=== PATIENT | male | born 1935 | race Caucasian/White ===

== ENCOUNTER 2019-12-11 17:56 | Emergency (ER) | payer OTHER, MEDICARE ==
[~2019-12-11] VITALS: Ht 177.8 cm; Wt 86.2 kg
[2019-12-11] MEDS ORDERED: Robaxin-750750 MG PO (22:27)
== END 2019-12-11 22:39 | disposition home or self-care (01) ==
LOC: ER 17:56
DX: M54.5 Low back pain (principal); I10 Essential (primary) hypertension; V49.9XXA Car occupant (driver) (passenger) injured in unspecified traffic accident, initial encounter
CPT/HCPCS: 72100; 99284-25

== ENCOUNTER 2020-05-20 07:42 | Day surgery (SDC) | payer MEDICARE, OTHER ==
[~2020-05-20 07:42] MED LIST: Robaxin-750750 MG PO
--- NOTE | 2020-05-20 09:04 | NUR ---
PT A/O X4, VSS, DENIES DIZZINESS OR PAIN. PT DENIES QUESTIONS. AMBULATORY WITHOUT ASSISTANCE.
--- NOTE | 2020-05-23 13:09 | NUR ---
05/23/20 1309 Suzie Cleary RN WAS NOT AVAILABLE TO FINISH CHARTING PT TIME OUT OF DEPARTMENT, GOT TIME FROM NURSES NOTE IN CLINICAL REVIEW.
== END 2020-05-20 23:20 | disposition home or self-care (01) ==
LOC: CT 07:42 → ORD 07:42 → CT 09:00 → ORD 23:20
DX: R07.9 Chest pain, unspecified (principal); I10 Essential (primary) hypertension; I45.10 Unspecified right bundle-branch block; I35.0 Nonrheumatic aortic (valve) stenosis; G47.33 Obstructive sleep apnea (adult) (pediatric); E78.5 Hyperlipidemia, unspecified; Z79.82 Long term (current) use of aspirin; Z79.899 Other long term (current) drug therapy; M19.90 Unspecified osteoarthritis, unspecified site; I25.10 Atherosclerotic heart disease of native coronary artery without angina pectoris; K44.9 Diaphragmatic hernia without obstruction or gangrene
CPT/HCPCS: 75571

== ENCOUNTER 2020-07-28 05:34 | Day surgery (SDC) | payer MEDICARE, OTHER ==
[~2020-07-28] VITALS: Ht 177.8 cm; Wt 89.0 kg
[~2020-07-28 05:34] MED LIST changes: +ACET500 PO; +ALLO100 PO; +AMLO5 PO; +Aspirin EC81 MG PO; +CALCIUM MAGNES1 EAC1 PO; +FISH OIL 1,2001 EAC1 PO; +GABA100 PO; +GABA300 PO; +GINKGO60 MG PO; +Garlic1 EAC1 PO; +Isosorbide Mono30 MG PO; +LACT PO; +LOSA50 PO; +Lovastatin20 MG PO; +METO25ER PO; +MULTI-VITAMIN1 EAC2 PO; +NITR.4SL SL; +OMEP20ER PO; +RED YEAST RICE PO; +THERA-D2000 UNIT PO; +UBID10 PO
--- NOTE | 2020-07-28 08:32 | NUR ---
PT BACK FROM PROCEDURE. R RADIAL SITE STABLE WITH TR BAND IN PLACE. PT AT SIDE AND PT EATING BREAKFAST.
--- NOTE | 2020-07-28 10:06 | NUR ---
PT HAVING 5/10 CHEST PAIN, DR BONDS NOTIFIED EKG OBTAINED. PT CHEST PAIN 4/10 AT THIS TIME. 2MG MORPHINE ORDERED TO BE GIVEN, BUT PT REFUSING AT THIS TIME.
--- NOTE | 2020-07-28 10:13 | NUR ---
CP DOWN TO 08/31, WILL CONTINUE TO MONITOR.
--- NOTE | 2020-07-28 10:25 | NUR ---
PT UP TO BATHROOM, STATES CHEST PAIN GONE. STATES HE HAS TIGHTNESS AT ABOUT A 0.5/10 ON SCALE NOW. WILL CONTINUE TO MONITOR.
--- NOTE | 2020-07-28 10:39 | NUR ---
DR BONDS IN TO SEE PT. PT STATES PAIN IS GONE AND HE FEELS BETTER. OKAYED TO BE DISCHARGED HOME WITH FOLLOW UP IN CLINIC. R RADIAL SITE CLEANSED AND CLOTH DOT PLACED. ARM BOARD TO RIGHT ARM. DISCHARGE INSTRUCTIONS REVIEWED WITH PT AND , BOTH VERBALIZE UNDERSTANDING OF INSTRUCTIONS. PT GETTING DRESSED WITH ASSIST OF .
--- NOTE | 2020-07-28 10:57 | NUR ---
SALINE LOCK REMOVED WITH CATHETER INTACT. PT DISCHARGED PER W/C TO PRIVATE VEHICLE.
== END 2020-07-28 11:30 | disposition home or self-care (01) ==
LOC: MHTC 05:34
DX: I25.119 Atherosclerotic heart disease of native coronary artery with unspecified angina pectoris (principal); R93.1 Abnormal findings on diagnostic imaging of heart and coronary circulation; I10 Essential (primary) hypertension; E78.5 Hyperlipidemia, unspecified; I35.0 Nonrheumatic aortic (valve) stenosis; I45.10 Unspecified right bundle-branch block; R09.89 Other specified symptoms and signs involving the circulatory and respiratory systems; G47.33 Obstructive sleep apnea (adult) (pediatric); M19.90 Unspecified osteoarthritis, unspecified site; Z79.82 Long term (current) use of aspirin
CPT/HCPCS: 76937; 93005; 93010; 93454; 99152; 99153; C1769; C1894; J1644; J2250; J3010; J7030; J7050; Q9967

== ENCOUNTER 2021-04-07 14:12 | Emergency (ER) | payer MEDICARE, OTHER ==
[~2021-04-07] VITALS: Ht 177.8 cm; Wt 88.5 kg
[2021-04-07 14:58] LABS: BASOPHILS ABSOLUTE AUTO 0.02 K/mm3 (0.00-0.23); BASOPHILS PERCENT AUTO 0 % (0-2); EOSINOPHILS ABSOLUTE AUTO 0.18 K/mm3 (0.00-0.68); EOSINOPHILS PERCENT AUTO 3 % (0-6); Hematocrit 45.4 % (37.0-53.0); Hemoglobin 15.2 g/dL (13.5-17.5); IMMATURE GRAN ABSOLUTE AUTO 0.02 K/mm3 (0.00-0.10); IMMATURE GRAN PERCENT AUTO 0 % (0-1); LYMPHOCYTES ABSOLUTE AUTO 1.21 K/mm3 (0.84-5.20); LYMPHOCYTES PERCENT AUTO 18 % (21-46); MONOCYTES PERCENT AUTO 9 % (4-13); Mean Corpuscular HGB 31.1 pg (26.0-34.0); Mean Corpuscular HGB Conc 33.5 g/dL (31.5-36.5); Mean Corpuscular Volume 93 fL (80-100); Mean Platelet Volume 9.9 fL (9.1-12.4); NEUTROPHILS ABSOLUTE AUTO 4.62 K/mm3 (1.96-9.15); NEUTROPHILS PERCENT AUTO 70 % (41-73); Platelet Count 195 K/mm3 (150-400); RDW Coefficient Variation 12.7 % (11.7-14.2); RDW Standard Deviation 43.8 fL (35.1-46.3); Red Blood Cell Count 4.89 M/mm3 (4.30-5.90); White Blood Cell Count 6.65 K/mm3 (4.00-11.30)
[2021-04-07 15:30] LABS: Alanine Aminotransfer (ALT/SGP 32 U/L (12-78); Albumin, Blood 3.9 g/dL (3.4-5.0); Albumin/Globulin Ratio 1.1 (0.8-1.8); Alk Phos 69 U/L (50-136); Anion Gap 5 mmol/L (6-16); Aspartate Aminotrans (AST/SGOT 20 U/L (12-37); Bilirubin, Total 0.5 mg/dL (0.1-1.0); Blood Urea Nitrogen 14 mg/dL (8-24); Bun/Creatinine Ratio 12.7 (12.0-20.0); CO2, Blood 29 mmol/L (21-32); Calcium, Blood 9.3 mg/dL (8.5-10.1); Chloride, Blood 105 mmol/L (98-108); Globulin, Blood 3.6 g/dL (2.2-4.0); Glomerular Filtration Rate >60 (60-); Glucose, Blood 126 mg/dL (70-99); Sodium, Blood 139 mmol/L (136-145); Total Protein, Blood 7.5 g/dL (6.4-8.2); Troponin I <0.015 ng/mL (0.000-0.040)
[2021-04-07] MEDS ORDERED: FAMO40 PO (16:44)
== END 2021-04-07 17:34 | disposition home or self-care (01) ==
LOC: ER 14:12
PROVIDERS: Physician Assistant
DX: R07.89 Other chest pain (principal); I10 Essential (primary) hypertension; I25.2 Old myocardial infarction; Z79.82 Long term (current) use of aspirin; Z79.899 Other long term (current) drug therapy
CPT/HCPCS: 36415; 71046; 80053; 83690; 83880; 84484; 85025; 93005; 93010; 99285-25; A9270

== ENCOUNTER 2021-09-13 21:18 | Emergency (ER) | payer MEDICARE, OTHER ==
[~2021-09-13] VITALS: Ht 177.8 cm; Wt 86.2 kg
[~2021-09-13 21:18] MED LIST changes: +FAMO40 PO
== END 2021-09-13 23:40 | disposition home or self-care (01) ==
LOC: ER 21:18
DX: G44.309 Post-traumatic headache, unspecified, not intractable (principal); I10 Essential (primary) hypertension; Z79.899 Other long term (current) drug therapy
CPT/HCPCS: 70450; 72125; 99284-25; A9270

== ENCOUNTER 2022-06-26 12:15 | Emergency (ER) | payer MEDICARE, OTHER ==
[~2022-06-26] VITALS: Ht 177.8 cm; Wt 88.5 kg
[2022-06-26 13:10] LABS: BASOPHILS ABSOLUTE AUTO 0.02 K/mm3 (0.00-0.23); BASOPHILS PERCENT AUTO 0 % (0-2); EOSINOPHILS ABSOLUTE AUTO 0.13 K/mm3 (0.00-0.68); EOSINOPHILS PERCENT AUTO 2 % (0-6); Hematocrit 46.2 % (37.0-53.0); Hemoglobin 15.4 g/dL (13.5-17.5); IMMATURE GRAN ABSOLUTE AUTO 0.01 K/mm3 (0.00-0.10); IMMATURE GRAN PERCENT AUTO 0 % (0-1); LYMPHOCYTES ABSOLUTE AUTO 1.49 K/mm3 (0.84-5.20); LYMPHOCYTES PERCENT AUTO 25 % (21-46); MONOCYTES ABSOLUTE AUTO 0.39 K/mm3 (0.16-1.47); MONOCYTES PERCENT AUTO 7 % (4-13); Mean Corpuscular HGB 30.7 pg (26.0-34.0); Mean Corpuscular HGB Conc 33.3 g/dL (31.5-36.5); Mean Corpuscular Volume 92 fL (80-100); Mean Platelet Volume 10.2 fL (9.1-12.4); NEUTROPHILS ABSOLUTE AUTO 3.91 K/mm3 (1.96-9.15); NEUTROPHILS PERCENT AUTO 66 % (41-73); Platelet Count 161 K/mm3 (150-400); RDW Coefficient Variation 13.2 % (11.7-14.2); RDW Standard Deviation 43.9 fL (35.1-46.3); Red Blood Cell Count 5.02 M/mm3 (4.30-5.90); White Blood Cell Count 5.95 K/mm3 (4.00-11.30)
[2022-06-26 14:28] LABS: Albumin/Globulin Ratio 1.2 (0.8-1.8); Bilirubin, Total 0.6 mg/dL (0.1-1.0); Calcium, Blood 9.6 mg/dL (8.5-10.1); Creatinine, Blood 0.87 mg/dL (0.60-1.20); Globulin, Blood 3.4 g/dL (2.2-4.0); Potassium, Blood 4.5 mmol/L (3.5-5.5); Total Protein, Blood 7.4 g/dL (6.4-8.2)
== END 2022-06-26 16:50 | disposition home or self-care (01) ==
LOC: ER 12:15
PROVIDERS: Emergency Medicine
DX: R07.9 Chest pain, unspecified (principal); I35.0 Nonrheumatic aortic (valve) stenosis; I45.10 Unspecified right bundle-branch block; I10 Essential (primary) hypertension; Z79.899 Other long term (current) drug therapy; Z79.82 Long term (current) use of aspirin
CPT/HCPCS: 36415; 71046; 80053; 84484; 85025; 93005; 93010; A9270

== ENCOUNTER 2024-03-23 15:00 | Emergency (ER) | payer MEDICARE, OTHER ==
[~2024-03-23] VITALS: Ht 177.8 cm; Wt 86.2 kg
[2024-03-23 15:31] LABS: BASOPHILS ABSOLUTE AUTO 0.04 K/mm3 (0.00-0.23); BASOPHILS PERCENT AUTO 1 % (0-2); EOSINOPHILS ABSOLUTE AUTO 0.31 K/mm3 (0.00-0.68); EOSINOPHILS PERCENT AUTO 4 % (0-6); Hematocrit 42.7 % (37.0-53.0); Hemoglobin 14.4 g/dL (13.5-17.5); IMMATURE GRAN ABSOLUTE AUTO 0.01 K/mm3 (0.00-0.10); IMMATURE GRAN PERCENT AUTO 0 % (0-1); LYMPHOCYTES ABSOLUTE AUTO 1.65 K/mm3 (0.84-5.20); LYMPHOCYTES PERCENT AUTO 23 % (21-46); MONOCYTES ABSOLUTE AUTO 0.69 K/mm3 (0.16-1.47); MONOCYTES PERCENT AUTO 10 % (4-13); Mean Corpuscular HGB Conc 33.7 g/dL (31.5-36.5); Mean Corpuscular Volume 92 fL (80-100); Mean Platelet Volume 9.7 fL (9.1-12.4); NEUTROPHILS ABSOLUTE AUTO 4.43 K/mm3 (1.96-9.15); NEUTROPHILS PERCENT AUTO 62 % (41-73); Platelet Count 175 K/mm3 (150-400); RDW Coefficient Variation 13.2 % (11.7-14.2); RDW Standard Deviation 44.2 fL (35.1-46.3); Red Blood Cell Count 4.65 M/mm3 (4.30-5.90); White Blood Cell Count 7.13 K/mm3 (4.00-11.30)
[2024-03-23 16:05] LABS: Albumin/Globulin Ratio 1.2 (0.8-1.8); Bilirubin, Total 0.5 mg/dL (0.1-1.0); Bun/Creatinine Ratio 16.8 (12.0-20.0); Calcium, Blood 9.4 mg/dL (8.5-10.1); Creatinine, Blood 1.07 mg/dL (0.60-1.20); Globulin, Blood 3.3 g/dL (2.2-4.0); Potassium, Blood 4.1 mmol/L (3.5-5.5); Total Protein, Blood 7.3 g/dL (6.4-8.2)
[2024-03-23 17:09] VITALS: BP 153/72
== END 2024-03-23 17:22 | disposition home or self-care (01) ==
LOC: ER 15:00
PROVIDERS: Emergency Medicine
DX: R07.89 Other chest pain (principal); I10 Essential (primary) hypertension; Z79.82 Long term (current) use of aspirin; Z79.899 Other long term (current) drug therapy
CPT/HCPCS: 71046; 80053; 83880; 84484; 85025; 93005; 93010; 99285-25

== ENCOUNTER 2024-09-13 10:52 | Observation (INO) | payer MEDICARE, BC ==
[~2024-09-13] VITALS: Ht 177.8 cm; Wt 86.6 kg
[2024-09-13] MEDS ORDERED: Ondansetron HCl 2 MG / ML 2ML Vial IV ONE (11:15)
[2024-09-13] MEDS ORDERED: NS 250 ML IV SCH (11:15)
[2024-09-13 11:31] LABS: BASOPHILS ABSOLUTE AUTO 0.04 K/mm3 (0.00-0.23); BASOPHILS PERCENT AUTO 1 % (0-2); EOSINOPHILS PERCENT AUTO 3 % (0-6); Hematocrit 46.6 % (37.0-53.0); Hemoglobin 15.5 g/dL (13.5-17.5); IMMATURE GRAN ABSOLUTE AUTO 0.01 K/mm3 (0.00-0.10); IMMATURE GRAN PERCENT AUTO 0 % (0-1); LYMPHOCYTES ABSOLUTE AUTO 1.25 K/mm3 (0.84-5.20); LYMPHOCYTES PERCENT AUTO 17 % (21-46); MONOCYTES ABSOLUTE AUTO 0.64 K/mm3 (0.16-1.47); MONOCYTES PERCENT AUTO 9 % (4-13); Mean Corpuscular HGB 30.8 pg (26.0-34.0); Mean Corpuscular HGB Conc 33.3 g/dL (31.5-36.5); Mean Corpuscular Volume 93 fL (80-100); Mean Platelet Volume 9.6 fL (9.1-12.4); NEUTROPHILS ABSOLUTE AUTO 5.32 K/mm3 (1.96-9.15); NEUTROPHILS PERCENT AUTO 71 % (41-73); Platelet Count 184 K/mm3 (150-400); RDW Coefficient Variation 12.7 % (11.7-14.2); RDW Standard Deviation 43.2 fL (35.1-46.3); Red Blood Cell Count 5.03 M/mm3 (4.30-5.90); White Blood Cell Count 7.46 K/mm3 (4.00-11.30)
[2024-09-13 11:49] LABS: Albumin, Blood 4.4 g/dL (3.4-5.0); Albumin/Globulin Ratio 1.2 (0.8-1.8); Bilirubin, Total 0.6 mg/dL (0.1-1.0); Bun/Creatinine Ratio 15.2 (12.0-20.0); Calcium, Blood 9.6 mg/dL (8.5-10.1); Creatinine, Blood 1.12 mg/dL (0.60-1.20); Globulin, Blood 3.6 g/dL (2.2-4.0); Magnesium, Blood 2.4 mg/dL (1.6-2.4); Potassium, Blood 3.7 mmol/L (3.5-5.5)
[2024-09-13 12:40] LABS: Influenza A, PCR NEGATIVE (NEGATIVE); Influenza B, PCR NEGATIVE (NEGATIVE); Resp Syncytial Virus, PCR NEGATIVE (NEGATIVE); SARS-Cov-2 (COVID-19) PCR, MMC NEGATIVE (NEGATIVE)
[2024-09-13 15:00] LABS: Anti-Xa UFH, PHA Monitoring <0.10 IU/mL; International Normalized Ratio 1.01; Prothrombin Time Results 10.8 Sec (9.7-11.5)
[2024-09-13] MEDS ORDERED: Heparin Sodium 5000 Units/ML 1ML MDV IV ONE (15:10)
[2024-09-13] MEDS ORDERED: Heparin Sodium,Porcine/0.5 NS 500 ML IV SCH (15:10)
[2024-09-13] MEDS ORDERED: Clopidogrel Bisulfate 300 MG TABLET PO ONE (15:20)
[2024-09-13] MEDS ORDERED: Empagliflozin 10 MG TAB PO SCH (16:00)
[2024-09-13] MEDS ORDERED: Atorvastatin 40 MG Tab PO SCH (16:00)
[2024-09-13] MEDS ORDERED: Metoprolol Succinate 25 MG TABCR PO SCH (16:00)
[2024-09-13 20:10] VITALS: BP 162/81
[2024-09-13] MEDS ORDERED: Amlodipine Besyl5 MG PO (20:28)
[2024-09-13] MEDS ORDERED: Gabapentin 300 MG Cap PO SCH (21:00)
[2024-09-13] MEDS ORDERED: Melatonin 5 MG Tablet PO ONE (21:28)
--- NOTE | 2024-09-13 22:55 | NUR ---
update GOT REPORT FROM EFRAIN MCCOLLUM @[id number]
--- NOTE | 2024-09-13 22:56 | NUR ---
[facility] PATIENT ARRIVED @ 2009 TO PCU 6. PATIENT HAS LEFT WRIST 20G IV WITH HEPARIN DRIP RUNNING @ 15U. A&O X4, LUNGS CLEAR, NO SEEN SKIN ISSUES. PATIENT HAS BILATERALLY HEARING AIDS WITH CASE ON SIDE TABLE. CALL OVI LADD.
[2024-09-14] VITALS (14 sets, daily range): BP systolic 108–162; BP diastolic 56–72
[2024-09-14] MEDS ORDERED: Dose Adjust by Pharmacy XX STA ×2 (00:34→09:07)
[2024-09-14 03:33] LABS: BASOPHILS ABSOLUTE AUTO 0.04 K/mm3 (0.00-0.23); BASOPHILS PERCENT AUTO 1 % (0-2); EOSINOPHILS ABSOLUTE AUTO 0.27 K/mm3 (0.00-0.68); EOSINOPHILS PERCENT AUTO 4 % (0-6); Hematocrit 40.4 % (37.0-53.0); IMMATURE GRAN ABSOLUTE AUTO 0.01 K/mm3 (0.00-0.10); IMMATURE GRAN PERCENT AUTO 0 % (0-1); LYMPHOCYTES ABSOLUTE AUTO 1.95 K/mm3 (0.84-5.20); LYMPHOCYTES PERCENT AUTO 27 % (21-46); MONOCYTES ABSOLUTE AUTO 0.62 K/mm3 (0.16-1.47); MONOCYTES PERCENT AUTO 9 % (4-13); Mean Corpuscular HGB 31.5 pg (26.0-34.0); Mean Corpuscular HGB Conc 34.7 g/dL (31.5-36.5); Mean Corpuscular Volume 91 fL (80-100); Mean Platelet Volume 9.7 fL (9.1-12.4); NEUTROPHILS ABSOLUTE AUTO 4.32 K/mm3 (1.96-9.15); NEUTROPHILS PERCENT AUTO 60 % (41-73); Platelet Count 177 K/mm3 (150-400); RDW Coefficient Variation 12.7 % (11.7-14.2); RDW Standard Deviation 41.7 fL (35.1-46.3); Red Blood Cell Count 4.45 M/mm3 (4.30-5.90); White Blood Cell Count 7.21 K/mm3 (4.00-11.30)
[2024-09-14] MEDS ORDERED: Omeprazole 20 MG CapCR PO SCH (06:00)
--- NOTE | 2024-09-14 06:06 | NUR ---
SHIFT SUMMARY PATIENT ARRIVED @2009 FROM ER. PATIENT SLEPT FOR MOST OF SHIFT ONLY WAKING FOR VITALS AND TO GO TO BATHROOM. PATIENT DOES NOT USE CALL LIGHT TO USE RESTROOM. NURSE EXPLAINED THE FALL RISKS INVOLVED WHEN NOT CALLING FOR HELP. PATIENT STATED" I AM FINE AND I DONT NEED HELP TO GO TO BATHROOM AND IF I DID I WOUOLD CALL YOU." PATIENT A&OX4, SBP 120'S AND HR DOES DROP DOWN INTO THE 50'S WHEN SLEEP, WHEN AWAKE IN THE 60-70'S. PATIENT IS NPO DUE TO HAVING A ANGIO DONE AT SOME POINT TODAY. PATIENT HAS A LEFT PERIPHERAL 20G IV AND HEPARIN INFUSING @15U. PATIENT STATES IV HURTS BUT WILL NOT ALLOW NURSE TO START ANOTHER ONE. IV RUNS GOOD AND NO SWELLING OR REDNESS. CALL LIGHT WITHIN REACH.
[2024-09-14] MEDS ORDERED: Verapamil HCL 2.5 MG/ML 2ML Injection ONE (06:37)
[2024-09-14] MEDS ORDERED: NS 250 ML IV ONE (06:38)
[2024-09-14] MEDS ORDERED: NS 1,000 ML IV ONE ×2 (06:38→07:04)
[2024-09-14] MEDS ORDERED: Nitroglycerin 2 MG/20 ML BTL ONE (06:38)
[2024-09-14] MEDS ORDERED: Heparin Sodium 1000 Units/ML 10ML MDV ONE ×2 (06:38→07:04)
[2024-09-14] MEDS ORDERED: FentaNYL Citrate 50 MCG/ML 2 ML Injection ONE (07:38)
[2024-09-14] MEDS ORDERED: Midazolam HCl 1MG / ML 2ML Vial ONE (07:38)
[2024-09-14] MEDS ORDERED: Isosorbide Mononitrate 30 MG TABCR PO SCH (09:00)
[2024-09-14] MEDS ORDERED: Losartan Potassium 50 MG Tab PO SCH (09:00)
--- NOTE | 2024-09-14 09:19 | NUR ---
ASSUMPTION OF CARE: PATIENT IS [place] A/O X 4. RA SPO2 >96%. PATIENT MILDLY HYPERTENSIVE BUT ONCE BACK FROM SYSTEMS SUPPORT OFFICER WAS NORMOTENSIVE LOW 110'S SYSTOLIC. NO CHEST PAIN. HEP GTT DC'D PER VERBAL FROM CONSTRUCTION ESTIMATOR ONCE HE RETURNED FROM SYSTEMS SUPPORT OFFICER. RIGHT RADIAL 10CC IN BAND 0825. NO ACUTE CONCERNS NO INTERVENTIONS. PLAN OF CARE CONTINUES. TOLERATING A MEAL DENIES DIZZINESS OR LIGHTHEADEDNESS
[2024-09-14] MEDS ORDERED: JARDIANCE10 MG PO (11:40)
--- NOTE | 2024-09-14 15:10 | NUR ---
DISHCARGE SUMMARY: PATIENT IS ALERT AND ORIENTED PLEASANT COOPERATIVE ABLE TO MAKE NEEDS KNOWN, TR BAND RECOVERED CHG TEGADERM IN PLACE. PRESSURE WRAP ON R AC VENOUS SITE REMOVED TEGADERM WITH GAUZE STILL IN PLACE. PATIENT UNDERSTOOD ALL DISCHARGE INSTRUCTIONS MED REC SENT TO [facility] BY THIS RN AND CHARGE. NO ACTUE CONCERNS, VSS. PATINET VOIDING WITH NO CONCERNS, SBA FOR LINE MANGEMENT, OTHERWISE COULD BE INDEPENDENT. ATA FRIEND FOR GENERAL ENGINEER. AND PATIENT WHEELED OUT BY [facility] AND ATA FRIEND. NO CONCERNS FROM THIS RN.
== END 2024-09-14 17:13 | disposition home or self-care (01) ==
LOC: ER 10:52 → PCU 15:16
PROVIDERS: Student in an Organized Health Care Education/Training Program; ADMIT Family Medicine
DX: I24.9 Acute ischemic heart disease, unspecified (principal); I25.10 Atherosclerotic heart disease of native coronary artery without angina pectoris; I11.0 Hypertensive heart disease with heart failure; I50.32 Chronic diastolic (congestive) heart failure; J44.9 Chronic obstructive pulmonary disease, unspecified; I35.0 Nonrheumatic aortic (valve) stenosis; K21.9 Gastro-esophageal reflux disease without esophagitis; K44.9 Diaphragmatic hernia without obstruction or gangrene; G62.9 Polyneuropathy, unspecified; E78.5 Hyperlipidemia, unspecified; G47.33 Obstructive sleep apnea (adult) (pediatric); Z66 Do not resuscitate; Z79.82 Long term (current) use of aspirin; Z79.899 Other long term (current) drug therapy; Z90.49 Acquired absence of other specified parts of digestive tract
CPT/HCPCS: 0241U; 36415; 71046; 76937; 80053; 83735; 84484; 85025; 85520; 85610; 85730; 93005; 93010; 93456; 96361; 96374; 96376; 99152; 99153; 99285-25; A9270; C1769; C1887; C1894; G0378; J1644; J2250; J2405; J3010; J7030; J7050; Q9967

== ENCOUNTER → 2025-03-24 | Outpatient (CLI) | payer MEDICARE, BC ==
[~2025-03-24] MED LIST changes: +Amlodipine Besyl5 MG PO; +JARDIANCE10 MG PO
[2025-03-24 16:41] LABS: BASOPHILS ABSOLUTE AUTO 0.06 K/mm3 (0.00-0.23); BASOPHILS PERCENT AUTO 1 % (0-2); EOSINOPHILS ABSOLUTE AUTO 0.27 K/mm3 (0.00-0.68); EOSINOPHILS PERCENT AUTO 5 % (0-6); Hematocrit 47.0 % (37.0-53.0); Hemoglobin 15.7 g/dL (13.5-17.5); IMMATURE GRAN ABSOLUTE AUTO 0.01 K/mm3 (0.00-0.10); IMMATURE GRAN PERCENT AUTO 0 % (0-1); LYMPHOCYTES ABSOLUTE AUTO 1.45 K/mm3 (0.84-5.20); LYMPHOCYTES PERCENT AUTO 26 % (21-46); MONOCYTES ABSOLUTE AUTO 0.49 K/mm3 (0.16-1.47); MONOCYTES PERCENT AUTO 9 % (4-13); Mean Corpuscular HGB Conc 33.4 g/dL (31.5-36.5); Mean Corpuscular Volume 92 fL (80-100); NEUTROPHILS ABSOLUTE AUTO 3.31 K/mm3 (1.96-9.15); NEUTROPHILS PERCENT AUTO 59 % (41-73); NRBC ABSOLUTE 0.00 K/mm3 (0.00-0.02); NRBC Auto 0.0 /100 WBC (0.0-0.2); Platelet Count 171 K/mm3 (150-400); RDW Coefficient Variation 13.2 % (11.7-14.2); RDW Standard Deviation 44.6 fL (35.1-46.3)
[2025-03-24 20:10] LABS: Creatinine, Urine Random 38.8 mg/dL (27.00-270.00); Microalb/Creat Ratio UR, Rand 14.974 mg/g (0.000-30.000); Microalbumin, Random Urine 5.81 mg/L (0.000-20.000)
[2025-03-24 20:25] LABS: Alanine Aminotransfer (ALT/SGP 45 U/L (12-78); Albumin, Blood 4.6 g/dL (3.4-5.0); Albumin/Globulin Ratio 1.5 (0.8-1.8); Anion Gap 10 mmol/L (3-11); Aspartate Aminotrans (AST/SGOT 22 U/L (12-37); Bilirubin, Total 0.6 mg/dL (0.1-1.0); Blood Urea Nitrogen 15 mg/dL (8-24); CHOL/HDL RATIO 2.5; CO2, Blood 28 mmol/L (21-32); Calcium, Blood 9.9 mg/dL (8.5-10.1); Chloride, Blood 104 mmol/L (98-108); Cholesterol 145 mg/dL (50-200); Creatinine, Blood 1.07 mg/dL (0.60-1.20); Globulin, Blood 3.1 g/dL (2.2-4.0); Glucose, Blood 124 mg/dL (70-99); HDL Cholesterol 57 mg/dL (>39); LDL/HDL RATIO 0.9; Low Density Lipoprotein Chol 51 mg/dL (0-110); Potassium, Blood 3.9 mmol/L (3.5-5.5); Sodium, Blood 138 mmol/L (136-145); Thyroid Stimulating Hormone 3.230 uIU/mL (0.360-4.800); Total Protein, Blood 7.7 g/dL (6.4-8.2); Triglycerides 183 mg/dL (30-160); Very Low Density Lipoprot Chol 36 mg/dL (6-32)
== END ==
LOC: LAB 11:10 → LAB SHORT 11:10
PROVIDERS: Family Medicine
DX: E11.9 Type 2 diabetes mellitus without complications (principal); Z79.899 Other long term (current) drug therapy
CPT/HCPCS: 80053; 80061; 82043; 82306; 82570; 84443; 85025